=== PATIENT | male | born 1965 | race Caucasian/White ===

== ENCOUNTER → 2022-01-10 | Outpatient (CLI) | payer SELFPAY | LOC: RAD 13:11 | DX: M54.40 Lumbago with sciatica, unspecified side (principal); M47.816 Spondylosis without myelopathy or radiculopathy, lumbar region | CPT/HCPCS: 72100 ==

== ENCOUNTER → 2022-01-26 | Outpatient (CLI) | payer OTHER | LOC: EMI 09:28 | DX: M54.50 Low back pain, unspecified (principal); M51.36 Other intervertebral disc degeneration, lumbar region; M51.37 Other intervertebral disc degeneration, lumbosacral region | CPT/HCPCS: 72148 ==